=== PATIENT | female | born 1960 ===

== ENCOUNTER 2017-10-23 11:43 | Emergency (ER) | payer SELFPAY ==
--- NOTE | 2017-10-23 13:34 | ED PDOC ---
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 Patient reports she was exercising in the morning without having breakfast and suddenly began to see everything blurry and black. She states she called her to bring her the juice she drinks after exercising and reports after getting off the car she again had completely felt dizzy and weak. Patient denies any loss of consciousness or seizures. in the er, states she feels completely better. ate a tray of food while here. PMD: Jase Scott Past Medical History Reviewed: Historical Data, Nursing Documentation, Vital Signs Vital Signs: Last Vital Signs Temp 97 F L 10/23/17 12:00 Pulse 65 10/23/17 12:00 Resp 19 10/23/17 12:00 BP 100/60 10/23/17 12:00 Pulse Ox 98 10/23/17 12:00 - Medical History PMH: No Chronic Diseases - Surgical History Surgical History: Appendectomy - Family History Family History: States: Unknown Family Hx - Social History Current smoker - smoking cessation education provided: No Alcohol: None Drugs: Denies - Allergies Allergies/Adverse Reactions: Allergies Allergy/AdvReac Type Severity Reaction Status Date / Time No Known Allergies Allergy Verified 10/23/17 12:00 Review of Systems ROS Statement: Except As Marked, All Systems Reviewed And Found Negative Eyes: Positive for: Vision Change (Black) Cardiovascular: Positive for: Light Headedness. Negative for: Chest Pain, Palpitations, Orthopnea Respiratory: Negative for: Cough, Shortness of Breath, Hemoptysis Gastrointestinal: Positive for: Nausea, Vomiting Neurological: Positive for: Dizziness. Negative for: Seizures Physical Exam - Reviewed Nursing Documentation Reviewed: Yes Vital Signs Reviewed: Yes - Physical Exam Appears: Positive for: Non-toxic, No Acute Distress Head Exam: Positive for: ATRAUMATIC, NORMOCEPHALIC Skin: Positive for: Normal Color Eye Exam: Positive for: Normal appearance ENT: Positive for: Normal ENT Inspection Neck: Positive for: Normal Cardiovascular/Chest: Positive for: Regular Rate, Rhythm Respiratory: Positive for: Normal Breath Sounds Gastrointestinal/Abdominal: Positive for: Normal Exam, Soft. Negative for: Tenderness Back: Positive for: Normal Inspection Extremity: Positive for: Normal ROM Neurologic/Psych: Positive for: Alert, emr specialist II-XII, Oriented (x3), Gait (stable) , Other ([id number] normal, ambulate normal). Negative for: Motor/Sensory Deficits, Aphasia, Facial Droop - Laboratory Results Result Diagrams: 10/23/17 13:35 10/23/17 13:35 - ECG O2 Sat by Pulse Oximetry: 98 (RA) Pulse Ox Interpretation: Normal Medical Decision Making Medical Decision Making: Time: 1313 Initial Plan: pres yncopal episode, rule out intracranial process, rule out electrolyte abnormality, rule out cardiac etiology --Head CT W/O Contrast --CMP --Troponin --CBC [address] FINDINGS: HEMORRHAGE: No intracranial hemorrhage. BRAIN: No mass effect or edema. Intracranial atherosclerosis. The carr-white matter differentiation appears intact. Please note that MRI with diffusion imaging is more sensitive in the detection of acute ischemic event. VENTRICLES: No hydrocephalus. CALVARIUM: Unremarkable. PARANASAL SINUSES: Unremarkable as visualized. No significant inflammatory changes. MASTOID AIR CELLS: Unremarkable as visualized. No inflammatory changes. OTHER FINDINGS: None. IMPRESSION: No acute intracranial pathology identified. 15:38 Patient denies abdominal pain and states he feels better and is cleared for discharge. There is agreement to discharge plan. Return if symptoms persist or worsen. labs reviewed, benign ekg NSR pt feels well pt states she had followed up in [facility] w dr scott previously. insturcted her to follow up for reevaluation, and if the dizziness or any other symptoms recur to return immediately ----- Scribe Attestation: Documented by Jamila Cardoso and Cecilio Yates, acting as a scrmark Enrique MD. Provider Lucas Attestation: All medical record entries made by the Savanaibnithya were at my direction and personally dictated by me. I have reviewed the chart and agree that the record accurately reflects my personal performance of the history, physical exam, medical decision making, and the department course for this patient. I have also personally directed, reviewed, and agree with the discharge instructions and disposition. Disposition - Clinical Impression Clinical Impression: Dizziness of unknown cause - Patient ED Disposition Is Patient to be Admitted: No Counseled Patient/Family Regarding: Studies Performed, Diagnosis, Need For Followup - Disposition Disposition: Routine/Home Disposition Time: 15:25 Condition: IMPROVED Additional Instructions: follow up in the clinic in 2 days for reevaluation return to the ED with any worsening or concerning symptoms Instructions: Dizziness, Nonvertigo, (DC) Forms: [employer] Connect (Brazilian)
[2017-10-23 13:51] LABS: BASO # 0.1 K/uL (0.0-0.2); BASO % 0.7 % (0.0-2.0); EOS # 0.1 K/uL (0.0-0.7); EOS % 1.1 % (0.0-4.0); HEMOGLOBIN 12.7 g/dL (12.0-16.0); LYMPH # 2.1 K/uL (1.0-4.3); LYMPH % 28.7 % (20.0-40.0); MEAN CELL VOLUME 93.6 fl (81.0-99.0); MEAN CORPUSCULAR HEMOGLOBIN 32.1 pg (27.0-31.0); MEAN CORPUSCULAR HGB CONC 34.3 g/dL (33.0-37.0); MEAN PLATELET VOLUME 9.3 fl (7.2-11.7); MONO # 0.4 K/uL (0.0-0.8); MONO % 5.4 % (0.0-10.0); NEUT # 4.6 K/uL (1.8-7.0); NEUT % 64.1 % (50.0-75.0); NRBC % 0.1 % (0.0-0.0); RBC 3.95 Mil/uL (3.80-5.20); RED CELL DISTRIBUTION WIDTH 13.2 % (11.5-14.5); WHITE BLOOD COUNT 7.2 K/uL (4.8-10.8)
[2017-10-23 13:55] LABS: ALB/GLOB RATIO 1.4 (1.0-2.1); ALBUMIN 4.2 g/dL (3.5-5.0); ALT/SGPT 48 U/L (9-52); AST/SGOT 37 U/L (14-36); BLOOD UREA NITROGEN 19 mg/dl (7-17); CALCIUM 9.2 mg/dL (8.4-10.2); GFR NON-AFRICAN AMERICAN > 60
--- NOTE | 2017-10-23 13:59 | CT ---
Date of service: 10/23/2017 PROCEDURE: CT HEAD WITHOUT CONTRAST. HISTORY: pre syncope COMPARISON: Images from noncontrast head CT performed 05/31/11 TECHNIQUE: Axial computed tomography images were obtained through the head/brain without intravenous contrast. Radiation dose: Total exam DLP = 819.99 mGy-cm. This CT exam was performed using one or more of the following dose reduction techniques: Automated exposure control, adjustment of the mA and/or kV according to patient size, and/or use of iterative reconstruction technique. FINDINGS: HEMORRHAGE: No intracranial hemorrhage. BRAIN: No mass effect or edema. Intracranial atherosclerosis. The carr-white matter differentiation appears intact. Please note that MRI with diffusion imaging is more sensitive in the detection of acute ischemic event. VENTRICLES: No hydrocephalus. CALVARIUM: Unremarkable. PARANASAL SINUSES: Unremarkable as visualized. No significant inflammatory changes. MASTOID AIR CELLS: Unremarkable as visualized. No inflammatory changes. OTHER FINDINGS: None. IMPRESSION: No acute intracranial pathology identified.
[2017-10-23 14:06] VITALS: O2SAT 98
--- NOTE | 2017-10-23 15:11 | CARD ---
APPROVED REPORT Date of service: 10/23/2017 <Conclusion> Normal sinus rhythm Normal ECG
[2017-10-23 15:56] VITALS: BP 130/68; RESP 19; TEMP 98.1
[2017-10-23 15:57] VITALS: PULSE 71
== END 2017-10-23 16:03 | disposition home or self-care (01) ==
LOC: H.ER 11:43
DX: R42 Dizziness and giddiness (principal)

== ENCOUNTER 2018-03-16 13:26 | Emergency (ER) | payer OTHER ==
[2018-03-16 13:40] VITALS: BP 178/77; PULSE 78; RESP 16; TEMP 97; O2SAT 98
--- NOTE | 2018-03-16 13:59 | ED PDOC ---
Upper Extremity Pain/Injury Time Seen by Provider: 03/16/18 13:50 Chief Complaint (Nursing): Upper Extremity Problem/Injury Chief Complaint (Provider): Right Shoulder Pain History Per: Patient History/Exam Limitations: no limitations Onset/Duration Of Symptoms: Persistent Current Symptoms Are (Timing): Still Present Additional Complaint(s): 57 year old female presents to the ED for evaluation of ongoing right shoulder pain. Patient reports that she had an MRI one month ago which revealed tendonitis, and has been taking Motrin intermittently, last doses 2 tabs last night and one tab at 1300 today, with no relief. Denies other complaints. PMD: [facility] Past Medical History Reviewed: Historical Data, Nursing Documentation, Vital Signs Vital Signs: Last Vital Signs Temp 97 F L 03/16/18 13:37 Pulse 78 03/16/18 13:37 Resp 16 03/16/18 13:37 BP 178/77 H 03/16/18 13:37 Pulse Ox 98 03/16/18 13:37 - Medical History PMH: No Chronic Diseases - Surgical History Surgical History: Appendectomy - Family History Family History: States: Unknown Family Hx - Home Medications Home Medications: Ambulatory Orders Medication Instructions Recorded RX: Naproxen 375 mg PO Q8 PRN #21 tablet 03/16/18 RX: Tramadol HCl [Ultram] 1 tab PO Q12 PRN #5 tablet 03/16/18 - Allergies Allergies/Adverse Reactions: Allergies Allergy/AdvReac Type Severity Reaction Status Date / Time No Known Allergies Allergy Verified 03/16/18 13:36 Review of Systems ROS Statement: Except As Marked, All Systems Reviewed And Found Negative Musculoskeletal: Positive for: Shoulder Pain (right) Physical Exam - Reviewed Nursing Documentation Reviewed: Yes Vital Signs Reviewed: Yes - Physical Exam Appears: Positive for: No Acute Distress Head Exam: Positive for: ATRAUMATIC, NORMOCEPHALIC Skin: Positive for: Normal Color, Warm Neck: Positive for: Normal, Painless ROM, Supple Cardiovascular/Chest: Positive for: Regular Rate, Rhythm Respiratory: Positive for: Normal Breath Sounds. Negative for: Respiratory Distress Extremity: Positive for: Tenderness (moderate noted by insertion of bicep of right arm). Negative for: Deformity Neurologic/Psych: Negative for: Motor/Sensory Deficits - ECG O2 Sat by Pulse Oximetry: 98 (RA) Pulse Ox Interpretation: Normal Medical Decision Making Medical Decision Making: Time: 1353 Initial Impression: chronic right shoulder pain Initial Plan: --Toradol 30mg IM Scribe Attestation: Documented by Alisha Francis acting as a scribe for Vivian Sanderson PA-C. Provider Scribe Attestation: All medical record entries made by the Scribe were at my direction and personally dictated by me. I have reviewed the chart and agree that the record accurately reflects my personal performance of the history, physical exam, medical decision making, and the department course for this patient. I have also personally directed, reviewed, and agree with the discharge instructions and disposition. Disposition - Clinical Impression Clinical Impression: Shoulder pain, right - Patient ED Disposition Is Patient to be Admitted: No - Disposition Disposition: Routine/Home Disposition Time: 13:57 Condition: FAIR Prescriptions: RX: Naproxen 375 mg PO Q8 PRN #21 tablet PRN Reason: Pain, Moderate (4-7) RX: Tramadol HCl [Ultram] 1 tab PO Q12 PRN #5 tablet PRN Reason: Pain, Severe (8-10) Instructions: Shoulder Pain (DC) Forms: [facility] ED School/Work Excuse Print Language: RUSSIAN
== END 2018-03-16 14:47 | disposition home or self-care (01) ==
LOC: H.ER 13:26
DX: M25.511 Pain in right shoulder (principal)
CPT/HCPCS: 96372; 99283; J1885